=== PATIENT | male | born 1985 | race Caucasian/White ===

== ENCOUNTER 2016-10-27 12:01 | Day surgery (SDC) | payer OTHER ==
[~2016-10-27] VITALS: Ht 177.8 cm; Wt 90.6 kg
[2016-10-27 13:31] VITALS: BP 121/70; PULSE 53; TEMP 97.8
[2016-10-27] MEDS ORDERED: ZOLOFT 100MG100 MG PO (13:38)
[2016-10-27] MEDS ORDERED: XANAX 0.5MG0.5 MG PO (13:38)
[2016-10-27] MEDS ORDERED: PERCOCET 325 MG1 TA2 PO (13:38)
[2016-10-27 16:28] VITALS: BP 136/77; PULSE 45; TEMP 97.6
[2016-10-27 16:43] VITALS: BP 130/78; PULSE 44
[2016-10-27] MEDS ORDERED: PYRIDIUM 100MG100 MG PO (16:44)
[2016-10-27 16:58] VITALS: BP 128/76; PULSE 45
[2016-10-27 17:13] VITALS: BP 137/73; PULSE 45
== END 2016-10-27 17:35 | disposition home or self-care (01) ==
LOC: SDCO 12:01
DX: N20.1 Calculus of ureter (principal); K21.9 Gastro-esophageal reflux disease without esophagitis; Z80.0 Family history of malignant neoplasm of digestive organs
CPT/HCPCS: C1769; C2617; J0690; J1170; J1200; J1885; J2405; J2704; J3010; J7120; Q9967